=== PATIENT | female | born 1990 | race Caucasian/White ===

== ENCOUNTER 2019-01-03 18:06 | Inpatient (IN) | payer OTHER ==
--- NOTE | 2019-01-03 19:16 | HP ---
General Information - Reason for Visit 30 at 37+6 days with twins in a vertex / variable position. - General Information Maternal Age: 28 Grav: 1 Para: 0 SAB: 0 IEA: 0 Estimated Due Date: 01/18/19 Determined By: LMP Maternal Blood Type and Rh: O Positive - Results this Serology/RPR Result: Non-Reactive Rubella Result: Immune HBsAg Result: Negative HIV Result: Negative GBS Culture Result: Negative Past Medical History Pertinent Past Medical History: See Records Pertinent Past Surgical History: See Records Pertinent Family History: Non-Contributory - Antepartal Records Antepartal Records: Reviewed, Complicated by: - twins / uncomplicated course to this point Review of Systems CV Complaint: No Respiratory: Shortness of Breath: No Genitourinary: No Bleeding, No Leaking Fluid Musculoskeletal: No Complaint Neurological: No Headache Movement: Normal Exam Allergies/Adverse Reactions: Allergies amoxicillin Allergy (Verified 01/03/19 18:30) Rash - Measurements Height: 5 ft 3 in Weight: 160 lb Weight in lbs: [phone] Body Mass Index (BMI): 28.3 Pre- Weight: 118 lb Weight Gained This : 42 lbs and 0 ozs - Exam Extremities: No Edema Heart: Normal Rhythm/Heart Sounds HEENT: No Significant Findings Lungs: Clear Bilaterally Rectal: Rectal Exam Deferred Reflexes: DTR 2+ Targeted Exam Findings See L&D Outpatient Visit Provider Note for Findings: N/A Cervical Exam: Closed Effacement: 50% Station: High Presenting Part: Vertex Membrane Status: Intact EFM Findings - External Monitor Findings Baseline Heart Rate: 130 External Monitor Findings: Accelerations Present - both similar baseline and category 1, Variability Moderate Contractions: Irregular, Mild Assessment/Plan - Assessment 37weeks 6 days for induction/ could not pass a son so will try a cervidil - Plan Plan: Cervical Ripening
[2019-01-03] MEDS ORDERED: Dinoprostone* 10 MG VAG.SUPP VAGINAL ONE (19:45)
[2019-01-04] MEDS ORDERED: Buffered Lidocaine 1% SYRIN* 1 ML/SYRINGE INTRADERM ONE (08:03)
[2019-01-04] MEDS ORDERED: Lactated Ringers 1000 ML Bag* 1,000 ML IV ONE (08:03)
[2019-01-04 11:00] LABS: Urine Benzodiazepine Screen None Detected (None Detect); Urine Opiates Screen None Detected (None Detect)
[2019-01-04] MEDS ORDERED: Misoprostol TAB* 100 MCG VAGINAL ONE ×2 (12:22→22:42)
[2019-01-05] MEDS ORDERED: Misoprostol TAB* 100 MCG VAGINAL ONE (03:30)
--- NOTE | 2019-01-05 11:03 | PTEDU ---
Patient Name: THI ROBERT THI ROBERT selected video: Never Ever Shake a Baby to view on 01/05/2019 at 11:03:05 AM from [id number]
[2019-01-05] MEDS: Lactated Ringers 1000 ML Bag* 1,000 ML IV SCH (12:05)
[2019-01-05 12:14] LABS: ABS Eosinophils 0.1 10^3/ul (0-0.6); ABS Lymphocytes 1.3 10^3/ul (1.0-4.8); ABS Monocytes 0.7 10^3/ul (0-0.8); ABS Neutrophils 9.4 10^3/ul (1.5-7.7); Eosinophil % 0.5 %; Hematocrit 40 % (35-47); Hemoglobin 13.9 g/dL (12.0-16.0); Lymphocyte % 11.6 %; Mean Corpuscular HGB Conc 35 g/dL (31-36); Mean Corpuscular Hemoglobin 32 pg (27-31); Mean Corpuscular Volume 92 fL (80-97); Mean Platelet Volume 9.5 fL (7.4-10.4); Nucleated Red Blood Cells % 0.1; Platelet Count 245 10^3/uL (150-450); Red Blood Count 4.33 10^6 /uL (3.70-4.87); Red Cell Distribution Width 13 % (10-15); White Blood Count 11.5 10^3/uL (3.5-10.8)
[2019-01-05] MEDS: Oxytocin in LR* 20 UNITS/1,000 ML BAG IVPB SCH (12:20)
[2019-01-06] MEDS: Lactated Ringers 1000 ML Bag* 1,000 ML IV SCH ×2 (01:30→12:32)
[2019-01-06] MEDS: Oxytocin in LR* 20 UNITS/1,000 ML BAG IVPB SCH (11:57)
[2019-01-06] MEDS ORDERED: Lidocaine/Epinephrin 1.5%/200* 5 ML AMP INJ ONE ×3 (12:53→15:10)
[2019-01-06] MEDS ORDERED: OBEPIDURAL* 250 ML EPIDURAL ONE (12:53)
[2019-01-06] MEDS ORDERED: Phenylephrine 40 MCG/ML SYRINGE IV PUSH PRN ×2 (14:10)
[2019-01-06] MEDS ORDERED: Sodium Citrate/Citric Acid* 15 ML UDC PO PRN (14:10)
[2019-01-06] MEDS ORDERED: EPHEDrine (Pressors)* 50 MG/ML VIAL IV PUSH PRN ×2 (14:10)
[2019-01-06] MEDS ORDERED: Famotidine TAB* 20 MG PO PRN (14:10)
[2019-01-06] MEDS ORDERED: Lactated Ringers 1000 ML Bag* 500 ML IV PRN ×2 (14:10)
[2019-01-06] MEDS ORDERED: Lactated Ringers 1000 ML Bag* 1,000 ML IV ONE (14:10)
[2019-01-06] MEDS ORDERED: Lactated Ringers 1000 ML Bag* 1,000 ML IV SCH ×2 (15:00→22:00)
[2019-01-06] MEDS ORDERED: OBEPIDURAL* 250 ML EPIDURAL SCH (15:00)
[2019-01-06] MEDS ORDERED: Dibucaine 1% 28.35 GM TUBE PR PRN (21:15)
[2019-01-06] MEDS ORDERED: Acetaminophen TAB* 325 MG PO PRN (21:15)
[2019-01-06] MEDS ORDERED: Witch Hazel PAD* JAR TOPICAL PRN (21:15)
--- NOTE | 2019-01-06 21:40 | PROCNOTE ---
[facility] OB: Delivery Note - Delivery A Date of : 01/06/19 Time of : 19:32 [place] Sex: Male Weight at : 5 lb 13 oz Score 1 Minute: 9 Score 5 Minutes: 9 Gestational Age in Weeks and Days at Delivery: 38 Weeks and 2 Days Delivery Method: Spontaneous Vaginal Labor: Induced Did Patient attempt ?: N/A, No Previous Amniotic Fluid: Clear Estimated Blood Loss: 400 Anesthesia/Analgesia: CEI for Labor Delivered By: Missy Jackson B Date of : 01/06/19 Time of : 20:18 [place] Sex: Male Weight at : 5 lb 4 oz Score 1 Minute: 9 Score 5 Minutes: 9 Gestational Age in Weeks and Days at Delivery: 38 Weeks and 2 Days Delivery Method: Vaginal Breech Labor: Induced Did Patient attempt ?: N/A, No Previous Amniotic Fluid: Clear Estimated Blood Loss: 400 Anesthesia/Analgesia: CEI for Labor Delivered By: Missy Jackson - Nursery Level of Nursery: Regular/Bedside - Perineum Perineal Injury: Vaginal Laceration Perineal Injury Comment: vaginal abrasion Perineal Repair: By Delivering Practioner - Events Delivery Events of Note: Pitocin During Labor, Protracted/Long Labor, Pitocin Only After Delivery Delivery Events of Note Comment: Twin B with breech presentation and terminal mec - Additional Delivery Notes Additional Delivery Notes: Pt presented at about 38 wks for IOL for di/di twins. otherwise uncomplicated. Pt initially given Cervidil which had no noted effect. Cervix was still long and closed. She then received multiple doses of vaginal misoprostol which resulted in the cervix eventually changing to 1cm dilation/50%. A Cook catheter was placed in the cervix and pitocin was added. After another 24 hours and ctx Q2 min, the cervix had reached 3cm/50%. AROM was performed, which finally resulted in labor progression and strong ctx. She received an epidural which was replaced shortly afterwards. She then progressed well to C/C/+1 and started pushing. She pushed with excellent effort at when she had reached +2-3, she was transferred to the OR. With several more contractions, she delivered the head of baby A in a controlled fashion. Shoulders and body followed easily, and was placed on mother's abdomen. Nuchal cord x1 reduced after delivery. After over a minute, the cord was doubly clamped and cut by father. U/S confirmed baby B was in the brianne breech presentation. Pt pushed for about 20 min with some descent of the presenting part. An FSE was then used to perform a needle amniotomy, producing clear fluid in a controlled way. Pt then continued to push very well and the breech delivered. Lower body was rotated to sacrum anterior, and each leg was swept out. The body was then wrapped with a moist towel and rotated in each direction until each arm could be swept down and delivered. The head then delivered to the perineum and delivered in a flexed position. placed on mother's abdomen, and cord again cut by father. IV pitocin increased. Cord blood collected x2. Both placentas delivered spontaneously and intact. Fundal tone was excellent. A small posterior vaginal lac was injected with 1% lidocaine and repaired with a single [id number] stitch of 3-0 Vicryl Rapide.
[2019-01-06] MEDS ORDERED: Methylergonovine INJ* 0.2 MG/ML 1ML AMP ONE (22:02)
[2019-01-06] MEDS: Ibuprofen TAB* 600 MG PO PRN (22:38)
[2019-01-07] MEDS: Ibuprofen TAB* 600 MG PO PRN ×3 (04:33→20:03)
[2019-01-07 07:05] LABS: ABS Eosinophils 0.1 10^3/ul (0-0.6); ABS Lymphocytes 1.1 10^3/ul (1.0-4.8); ABS Monocytes 1.1 10^3/ul (0-0.8); ABS Neutrophils 13.3 10^3/ul (1.5-7.7); Eosinophil % 0.5 %; Hematocrit 31 % (35-47); Hemoglobin 11.3 g/dL (12.0-16.0); Lymphocyte % 6.9 %; Mean Corpuscular HGB Conc 36 g/dL (31-36); Mean Corpuscular Hemoglobin 33 pg (27-31); Mean Corpuscular Volume 91 fL (80-97); Mean Platelet Volume 9.6 fL (7.4-10.4); Platelet Count 164 10^3/uL (150-450); Red Blood Count 3.42 10^6 /uL (3.70-4.87); Red Cell Distribution Width 13 % (10-15); White Blood Count 15.6 10^3/uL (3.5-10.8)
[2019-01-07] MEDS ORDERED: Ferrous Gluconate TAB* 324 MG TAB PO SCH (09:00)
[2019-01-07] MEDS: Docusate CAP* 100 MG PO SCH ×3 (09:11→20:03)
[2019-01-07] MEDS: Simethicone TAB* 80 MG TAB.CHEW PO SCH ×3 (09:11→17:23)
[2019-01-08 07:54] VITALS: BP 124/89
[2019-01-08] MEDS: Docusate CAP* 100 MG PO SCH ×2 (09:06→14:14)
== END 2019-01-08 15:40 | disposition home or self-care (01) | DRG 807 ==
LOC: MCHOBOUT 18:06 → MCHOB 19:19
PROVIDERS: ADMIT Obstetrics & Gynecology; ATTEND Obstetrics & Gynecology
PROC: 10E0XZZ Delivery of Products of Conception, External Approach (ICD-10-PCS; principal; 2019-01-06)
PROC: 3E033VJ Introduction of Other Hormone into Peripheral Vein, Percutaneous Approach (ICD-10-PCS; 2019-01-06)
PROC: 10907ZC Drainage of Amniotic Fluid, Therapeutic from Products of Conception, Via Natural or Artificial Opening (ICD-10-PCS; 2019-01-06)
PROC: 0HQ9XZZ Repair Perineum Skin, External Approach (ICD-10-PCS; 2019-01-06)
DX: O32.1XX2 Maternal care for breech presentation, fetus 2 (principal); Z37.2 Twins, both liveborn; O77.0 Labor and delivery complicated by meconium in amniotic fluid; O30.043 Twin pregnancy, dichorionic/diamniotic, third trimester; O70.0 First degree perineal laceration during delivery; O69.81X0 Labor and delivery complicated by cord around neck, without compression, not applicable or unspecified; Z3A.38 38 weeks gestation of pregnancy
CPT/HCPCS: 36415; 59200; 76815; 80307; 85025; 86850; 86900; 86901; A9270-GY; J2210; S0191